=== PATIENT | male | born 1965 | race Caucasian/White ===

== ENCOUNTER 2017-05-29 13:54 | Emergency (ER) | payer BC ==
[~2017-05-29] VITALS: Ht 162.6 cm; Wt 64.4 kg
[~2017-05-29 13:54] MED LIST: CIPRO 250MG TA250 MG PO; CORTISPORIN (GE10 M1 OT; NOMEDS; PREDNISONE20 MG PO; VICODIN 5/500 T1 TAB PO; ZITHROMAX Z-PA250 M1 PO
--- NOTE | 2017-05-29 15:10 | [facility]gent Treatment Center Report ---
History of Present Issue Date/Time Seen by Provider 05/29/17 1409 Visit Reason Pt arrived:Walked Presenting Problem:COUGHING,NICOLE,BODY ACHES,SOA Location if Accident: Onset of symptoms date/time:05/22/17 or onset unknown for: Have you (or family members/close friends) recently traveled outside the [place]? N If Yes, where/when: Have you had exposure to infectious disease within the past month? TB? Other? Specify: c/o chest congestion and productive cough x "nearly 2 weeks". Getting worse. Now associated w/ achy, fatigue, SOA and wheezing. + tobacco use approx 1.5-2ppd. No current dx COPD and no use of inhalers. Denies fever. Sputum color unknown "I don't pay attention". w/ same symptoms that started first. Robitussin hasn' t helped. Hasn't taken or tried anything else consistently. Source patient Exam Limitations no limitations ALLERGIES Coded Allergies: codeine (Intermediate, 05/10/17) Home Medications Active Scripts [id number] OTIC SUSP (Xwumvuxr-Mvhkjldxi-Au Ear Susp) 4 DROP OT QID #1 BOT Prov: 05/10/17 Azithromycin (Zithromax Z-Jose F 250MG Cap) 250 MG PO DAILY #6 CAP Prov: 11/29/14 Prednisone (Prednisone 20MG Tab) 20 MG PO DAILY #10 TAB Prov: 11/29/14 Reported Medications No Home Medications (NO HOME MEDICATIONS) History Medical History General Angina: No [place]: No Hypertension? No Hyperlipidemia? No CHF? No COPD? No Asthma? No CVA? No Seizures? No Diabetes? No GB Disease: No MRSA? No TB? No Cancer? No Immunization HX DT/Tetanus NOT SURE Surgical Hx Previous Surgery?Y Back Surgery Appendix EAR TUBES Social History Smoking Hx Smoker: Current Every Day Smoker Tobacco: Yes Type Cigarettes Packs/day 1 1/2 - 2 Packs Alcohol Alcohol: No Review of Systems All Other Systems Reviewed and Negative Constitutional see HPI Eyes denies drainage ENT see HPI, nose discharge. denies: ear pain, nose congestion, throat pain. Respiratory see HPI Cardiovascular denies chest pain, denies palpitations Gastrointestinal denies no symptoms reported Skin denies rash Psychiatric/Neurological see HPI Physical Exam Vital Signs Vital Signs Date Time Temp Pulse Resp B/P Pulse O2 O2 Flow FiO2 Ox Delivery Rate 05/29 1552 98.8 65 18 130/87 97 05/29 1420 98.8 65 18 130/87 97 General Appearance normal appearance, no apparent distress Eye Exam - bilateral eye normal exam Ear, Nose, Throat normal ENT inspection Neck non-tender, supple Respiratory Status Yes: trachea midline, chest symmetrical, non tender chest, non productive cough (frequent, worse deep breaths). No: respiratory distress, use of accessory muscles, pain on inspiration, pain on expiration. Lung Sounds anterior: rhonchi, wheezing (primarily expiratory). posterior: rhonchi, wheezing (primarily expiratory). bilateral: rhonchi, wheezing (primarily expiratory). Cardiovascular regular rate/rhythm, no peripheral edema, no murmur Neurologic alert, oriented x 3 Mental status normal mood/affect Skin normal color, warm/dry Lymphatic no adenopathy Medical Decision Making LABS/Meds/Orders Pt receiving controlled substance in ED? No Results/Orders Current Medication Orders Sig/Des Start time Last Medication Dose Route Stop Time Status Admin Methylprednisolone 0 .STK-MED ONE 05/29 1440 DC Sodium Succinate .ROUTE Albuterol/Ipratropium 3 ML ONCE ONE 05/29 1430 DC 05/29 INH 05/29 1431 1439 Methylprednisolone 125 MG ONCE ONE 05/29 1430 DC 05/29 Sodium Succinate IM 05/29 1431 1448 Orders Procedure Date/time Status RT REQUEST DUONEB 05/29 1422 Active XRAY/CT/US XRAY/CT/US XRAY chest XR interpretation by reviewed by me (Dr. Son, ) Xray Results old granuloma, no acute findings Progress [facility] Progress Notes Date 05/29/17 Time 1535 Comment lung sounds improved. still scattered rhonchi and wheezing not nearly as bad as initially. Pt reports "already feeling some better". Departure Departure Time of Disposition 1540 Disposition DC Home or Self Care(routine) Clinical Impression Primary Impression: Acute bronchitis Qualifiers: Bronchitis organism: unspecified organism Qualified Code: J20.9 - Acute bronchitis, unspecified Secondary Impressions: Tobacco abuse Condition STABLE Referrals NO REFERRAL Follow up with primary care IMMEDIATELY for new or worsening symptoms OR no noticeable improvement over the next 48-72 hours. 911 for difficulty breathing. Patient Instructions DI for Acute Bronchitis, How to Quit Tobacco Products Additional Instructions * signs of COPD. STOP smoking. This will only continue to get worse the more you continue to smoke. * start antibiotic today. Be sure to complete entire prescription even if feeling better. * Monitor Temp. Tylenol every 4 hours as needed and/or ibuprofen every 6 hours as needed (as long as your primary care doctor has told you that it is ok to take both) for fever/aches/pain. ER if fever no less than 101 despite tylenol and ibuprofen * humidifier/vaporizer/hot steamy shower * Inhaler every 4-6 hours as needed like we discussed. If unsure how to use it, ask pharmacist to demonstrate how. Should help open airways and improve cough, wheezing, shortness of breath. * Mucinex during the day for your cough and cough suppressant only at night. Be sure to drink lots of water. Insurance may not cover a prescription of mucinex. Might be cheaper to get 400mg tablets and take 2 tablets morning, midday and evening all with lots of water. * Tessalon Perles will not cause drowsiness but use at bedtime to help stop cough so that you can get some rest * Start steroid tomorrow. Helps with inflammation therefore, cough and wheezing. Follow directions on package. Rvwd side effects. Pt reports they have taken them before. Discharge Counseling Counseled pt/family regarding diagnosis, test results, medications/RX, home care, follow up needs Prescriptions Current Visit Scripts Azithromycin (Zithromycin (Z-JOSE F) 250MG Tab) 250 MG PO DAILY #6 TAB TAKE TWO (2) TABLETS ON DAY 1, THEN ONE (1) TABLET DAY #2 THRU #5 ALBUTEROL (Proventil Hfa Inhaler) 1-2 PUFF IH Q4-6H PRN PRN SOA, wheezing #1 CAN Benzonatate 200 MG PO QHSP PRN cough #14 SGL Prednisone (Prednisone 20MG) 20 MG PO BID #10 TAB at 2407
[2017-05-29] MEDS ORDERED: PREDNISONE 20MG20 MG PO (15:45)
[2017-05-29] MEDS ORDERED: PROVENTIL0.09 MG/A1 IH (15:45)
[2017-05-29] MEDS ORDERED: BENZONATATE200 MG PO (15:45)
[2017-05-29] MEDS ORDERED: ZITHROMAX Z PA250 MG PO (15:45)
[2017-05-29 15:52] VITALS: BP 130/87
--- NOTE | 2017-05-29 21:26 | RADIOLOGY REPORT PS360 ---
CHEST(2 VIEWS-NOT PORTABLE) HISTORY: cough x weeks, SOA, wheezing, smokes 1.5-2ppd ORDERING PHYSICIAN: JOSE MOTA APRN PATIENT AGE: 52 years COMPARISON: 11/29/2014 FINDINGS: The cardiomediastinal silhouette and pulmonary vascularity are within normal limits. The lungs are clear without infiltrates, suspicious nodules, or pleural effusions. No acute bony abnormalities. IMPRESSION: Negative chest, no acute finding
== END 2017-05-29 15:53 | disposition home or self-care (01) ==
LOC: UTC 13:54
DX: J20.9 Acute bronchitis, unspecified (principal); F17.210 Nicotine dependence, cigarettes, uncomplicated